=== PATIENT | male | born 1965 | race Caucasian/White ===

== ENCOUNTER → 2017-04-20 | Day surgery (SDC) | payer MEDICARE, OTHER ==
[~2017-04-20] VITALS: Ht 188 cm; Wt 96.1 kg
[~2017-04-20] MED LIST: *HYDROmorphone PF 1 MG VIAL PERIprocedural Use ONLY ONE; *morphine SULFATE 10 MG/ML PERIprocedure ONLY ONE; ACETAMINOPHEN 1000 MG/100 ML 100 ML IV ONE; BUPIVACAINE/EPINEPHRINE 0.25% 50 ML VIAL ONE; BUPIVACAINE/EPINEPHRINE 0.25% PF 30 ML VIAL ONE; CHLORHEXIDINE GLUCONATE 2 % 1 PACK (2 CLOTHS) TOPICAL PRN; DO NOT ADM ANY ANTICOAGULANT DRUGS PRN; GLYCOPYRROLATE 1 MG/5 ML SYRINGE IV PUSH ONE; KETOROLAC TROMETHAMINE 30 MG/ML (IVP) VIAL IV PUSH ONE; KETOROLAC TROMETHAMINE 30 MG/ML (IVP) VIAL IVP PRN; LACTATED RINGER'S 1000 ML IV PRN; LIDOCAINE HCL 1% PF 5 ML SYRINGE OTHER ONE; METOPROLOL TARTRATE 25 MG TAB PO PRN; MORPHINE SULFATE 2 MG/ML INJ IM ONE; MORPHINE SULFATE 2 MG/ML INJ IV PUSH PRN; NALOXONE HCL 0.4 MG/ML AMP IV PUSH PRN; NEOSTIGMINE 5 MG/5 ML SYRINGE IV PUSH ONE; ONDANSETRON HCL 4 MG/2 ML VIAL IV ONE; ONDANSETRON HCL 4 MG/2 ML VIAL IV PUSH PRN; PCA - TOTAL MG MORPHINE DELIVERED PER SHIFT SCH; POVIDONE IODINE 5% (ANTISEPSIS KIT) 4 APPLICATIONS EACH NARE PRN; PROPOFOL 200 MG/20 ML AMP IV ONE; Post-op Orders (for Pharmacy) XX ONE; ROCURONIUM INJ 50 MG/5 ML SYRINGE IV PUSH ONE; SODIUM CHLOR 0.9% 250 ML INJ 250 ML IV ONE; SODIUM CHLORID 0.9% 500 ML IV PRN; VANCOMYCIN 500 MG VIAL ONE; ceFAZolin 2 GM PREMIX 50 ML IV SCH; diphenhydrAMINE HCL 25 MG CAP PO PRN; oxyCODONE/ACETAMINOPHEN 5 MG/325 MG TAB PO PRN
[2017-04-20 11:00] VITALS: BP 128/79; PULSE 72; RESP 20; TEMP 98; O2SAT 96
--- NOTE | 2017-04-20 11:06 | MP ---
cc: SHANELL MCDONALD M.D. DATE OF SURGERY 04/20/2017 PREOPERATIVE DIAGNOSIS Recurrent umbilical hernia. POSTOPERATIVE DIAGNOSIS Recurrent umbilical hernia. PROCEDURE PERFORMED Laparoscopic umbilical hernia repair with mesh (Gibsonia-Zander dual mesh). SURGEON Shanell Mcdonald MD ANESTHESIA General endotracheal COMPLICATIONS None INDICATION FOR THE PROCEDURE Mr. Stern is a very pleasant 51-year-old [place] gentleman who had an umbilical hernia repair in the past. He developed a recurrence. It was causing him discomfort. Hernia was enlarging. The patient was offered elective repair. Because he had a previous open repair, I recommended a laparoscopic repair and he was agreeable. DETAILS The patient was identified, brought to the operating room, placed supine on the operating room table. After adequate general endotracheal anesthesia was achieved, the abdomen was prepped and draped in standard surgical fashion. Quarter percent Marcaine was injected in the skin and subcutaneous tissue in the right upper quadrant. A subcostal right upper quadrant incision was then made. Dissection was carried down through the subcutaneous tissue to the anterior abdominal wall fascia. The anterior abdominal wall fascia was then incised transversely. Abdominal wall musculature was then spread along the course of their fibers. Blunt finger technique was used to enter the peritoneum without any difficulty. Blunt balloon trocar was inserted and the abdomen was insufflated to 15 mm using CO2 gas. Next, a 5 mm trocar was placed in the right middle quadrant after anesthetizing the skin and subcutaneous tissue with quarter percent Marcaine. Attention was directed to the umbilical region where incarcerated omentum was noted. Using gentle traction and manual external pressure, the omentum was reduced out of the umbilical defect. Bleeding points were controlled with electrocautery Bovie. There was no bowel within the hernia only omentum. Once the hernia defect was completely identified, it was photographed. The falciform ligament was taken down slightly in order to have generous margins around the hernia superiorly. Attention was directed to the left lower quadrant. The patient had previously had a laparoscopic left inguinal hernia repair with mesh. There was no evidence of a recurrent hernia. There was noted to be omental adhesions in the left lower quadrant and the colon was stuck up likely from the previous hernia repair. Attention was now directed to the umbilical defect. It was measured out and we selective a 10 x 15 piece of Gibsonia-Zander dual mesh which was cut down to a 10 x 10 piece. Four stay sutures were then placed in the superior, inferior, medial and lateral borders of the mesh using Gibsonia CVS suture. Mesh was then introduced into the abdominal cavity. Mesh was then brought up to the abdominal wall using the Gibsonia suture passer in all four quadrants with generous mesh overlap over the fascial defect in all directions. Mesh was well-centered right over the defect. Mesh was tied up to the abdominal wall and was noted be taut in all four directions. The tacking device was then used to circumferentially tack the edge of the mesh down. Mesh was then photographed in place. The omentum was then inspected and there was no evidence of bleeding. Omentum was then placed over the small bowel in between the intestine and the mesh and then the abdomen was desufflated. All trocars were then removed. The anterior abdominal wall fascia was repaired with a 0 Vicryl in a [id number] fashion. Skin was closed with 4-0 Vicryl. Port site was closed 4-0 Vicryl. Puncture sites were closed with Steri-Strips. MD VIDAL Prince/JOHN /9:04 AM /10:47 AM
--- NOTE | 2017-04-20 21:06 | EKG ---
Date Performed: 04/20/2017 Time Performed: 07:11:21 PTAGE: 51 years EKG: Sinus rhythm BNORMAL ECG NO PREVIOUS TRACING DOCTOR: Beck Shields Interpretating Date/Time 04/20/2017 21:04:47
== END | disposition home or self-care (01) ==
LOC: HSDC 05:55
PROVIDERS: ATTEND Surgery Trauma Surgery
DX: K42.0 Umbilical hernia with obstruction, without gangrene (principal); Z01.810 Encounter for preprocedural cardiovascular examination
CPT/HCPCS: 00750; 49653; 93005; C1781; J0131; J0690; J1170; J1885; J2270; J2405; J2710; J3010; J3370; J7050; J7120